=== PATIENT | male | born 1970 ===

== ENCOUNTER 2023-06-18 04:44 | Day surgery (SDC) | payer OTHER ==
[~2023-06-18 04:44] MED LIST: COZAAR50 MG PO; LIPIT PO; PROSCAR5 MG PO; TAMS0.4C PO
[2023-06-18] MEDS ORDERED: PERCOCET 5-3251 EACH PO (08:05)
[2023-06-18] MEDS ORDERED: RECTICARE30 GM TOP (08:06)
== END 2023-06-18 13:00 | disposition home or self-care (01) ==
LOC: CIR.AMB 04:44
PROVIDERS: ATTEND Surgery
DX: K62.0 Anal polyp (principal); K62.1 Rectal polyp; D37.5 Neoplasm of uncertain behavior of rectum; I10 Essential (primary) hypertension; Z20.822 Contact with and (suspected) exposure to COVID-19; K64.8 Other hemorrhoids